=== PATIENT | female | born 1975 | race Hispanic/Latino ===

== ENCOUNTER 2024-11-16 09:10 | Outpatient (RCR) | payer OTHER, SELFPAY ==
--- NOTE | 2024-11-16 09:51 | OPREHPOC ---
Outpatient Therapy Plan of Care This is a Multidisciplinary Plan of Care that may contain components documented by all disciplines (PT, OT, and ST.) PT Problem 1 PT Problem #1 Knowledge Deficit PT Goal 1 Goal / Goal Update 1. Patient will perform independent HEP Target Visit 2 PT Problem 2 PT Problem #2 Impaired Strength PT Goal 1 Goal / Goal Update 1. Improve pelvic floor strength to 4/5 to reduce incontinence 2. Improve pelvic floor endurance to 10 seconds to reduce incontinence Target Visit 5 PT Problem 3 PT Problem #3 Impaired Functional ADLs PT Goal 1 Goal / Goal Update 1. Patient will report incontinence no more than 1 time in a 1 month period 2. Patient will report no need to wear pads or liners due to incontinence Target Visit 5
--- NOTE | 2024-11-16 09:51 | PTOPEVAL1 ---
Assessment and note entered by Lori Davies DPT Evaluation Information Assessment Status Evaluation ICD-10 Condition Codes (PT) Weakness R53.1,Stress incontinence N39.3 Subjective Information Pt reports stress incontinence that started about 2 years ago and is getting worse. Will get incontinence daily if she coughs or sneezes at all and notes she has to void right before doing any physical activity. Wears liners. Volume of incontinence is usually small but sometimes has to change clothes. Voids 5 times a day and none at night. Denies pain. BM every day. Denies history of pelvic pain. Has had 4 vaginal deliveries, no tearing or complications. Reports no [employer] or b/b history. Patient goal: be able to hold urine better Returns to MD in 1 month. Reported Pain Level Pain Score 0: Self Report Assessment PT Clinical Summary The patient is presenting to skilled therapy with a history of worsening stress incontinence. She reports incontinence occurs daily and she demonstrates significantly decreased pelvic floor strength and endurance as well as decreased hip and abdominal strength. These impairments are contributing to her incontinence and she will highly benefit from skilled therapy to improve strength and reduce incontinence in order to function without limitation. Plan of Care Interventions Manual Therapy,Neuro Re-education,Patient/ Caregiver Education,Therapeutic Activities, Therapeutic Exercise PT Services Indicated Yes Treatment Frequency and 1 time a week for 5 visits Duration These treatments will address the objective and functional deficits as defined above. The patient will be advanced safely and appropriately in order for the patient to progress towards his/her prior level of function. Additional exercises will be introduced and as well as a comprehensive home exercise program upon discharge, if needed, ?to ensure carryover of functional gains achieved in the clinic. This treatment plan has been reviewed and agreement upon by the patient.
--- NOTE | 2024-12-03 09:48 | PCPTNOTE ---
Late entry- patient cancelled appointment 11/28/24 due to work conflict.
--- NOTE | 2025-01-09 10:10 | PTOPDC ---
Assessment and note entered by Lori Davies DPT Evaluation Information Assessment Status Discharge - Pt Not Present ICD-10 Condition Codes (PT) Weakness R53.1,Stress incontinence N39.3 Subjective Information - Assessment PT Clinical Summary Patient has not attended therapy since initial evaluation 11/16/24. Her case will be discharged this date. Plan of Care PT Services Indicated No
== END 2025-01-09 12:56 | disposition home or self-care (01) ==
LOC: ANHPT 09:10
PROVIDERS: PCP Physician Assistant; Visit Provider Physician Assistant
DX: N39.3 Stress incontinence (female) (male) (principal)
CPT/HCPCS: 97112; 97161